=== PATIENT | female | born 1985 | race Caucasian/White ===

== ENCOUNTER 2025-02-16 16:43 | Emergency (ER) | payer MEDICAID ==
[~2025-02-16] VITALS: Ht 165.1 cm; Wt 88.6 kg
[2025-02-16 17:00] VITALS: BP 130/74; PULSE 62; TEMP 98; O2SAT 99
--- NOTE | 2025-02-16 17:09 | ELECTROCARDIOGRAPH REPORT ---
[facility] Test Date: 2025-02-16 Test Time: 17:07:55 Pat Name: ANDRE NAPIER Department: [facility]-ER Patient ID: [id number] Room: Gender: F Roof Tile Layer: : 1985 Requested By: BOBBY TABOR Order Number: [id number] Reading MD: Dr. RAJ Murray Measurements Intervals [place] Rate: 59 P: 51 [place]: 167 QRS: 46 QRSD: 99 T: 21 QT: 395 QTc: 392 Interpretive Statements Sinus bradycardia Probable left atrial enlargement RSR' in V1 or V2, probably normal variant Electronically Signed On 02-18-2025 19:23:[address] RAJ Murray Please click the below link to view image of tracing.
--- NOTE | 2025-02-16 19:27 | RADIOLOGY REPORT ---
CLINICAL HISTORY: CP TECHNIQUE: Single view of the chest was obtained. COMPARISON: None FINDINGS: The heart size and pulmonary vasculature are normal. The lungs are clear. IMPRESSION: NO ACUTE CARDIOPULMONARY PROCESS.
[2025-02-16 19:38] VITALS: RESP 18
--- NOTE | 2025-02-16 19:39 | Physician Documentation ---
History of Present Illness ~ Chief Complaint: Dizziness Stated Complaint: DIZZINESS Time Seen by MD: 19:35 HPI Patient presents to the emergency room with chief complaint of dizziness as if the room is spinning. Dizziness is random that has not seem to be exacerbated with some of the times it does. Denies weakness. States she is able to walk if she keeps her eyes focused on something. History of tinnitus Medication Reconciliation Allergies: Coded Allergies: No Known Allergies (Unverified , 02/16/25) Review of Systems ROS All review of systems negative except as per HPI Physical Exam Vital Signs: Temperature: 98.0, Source: Temporal, Heart Rate: 62, Respiratory Rate: 16, BP: 130/74, Pulse Oximetry: 99, Weight: 88.600 Oxygen Flow Rate: 0 Physical Exam General: Patient is awake, alert, oriented x4 in no acute distress and well appearing.~ Head: Normocephalic and atraumatic. Eyes: Conjunctival normal. EOMI. PERRL. ENT: Mucous membranes moist. Neck: Supple, trachea is midline. Chest: Clear to auscultation bilaterally without rales, rhonchi, or wheezes. There is no accessory muscle use or retractions. Cardiac: RRR without murmurs, gallops, or rubs. Abd: Soft, nondistended, nontender, with normoactive bowel sounds. No guarding, rebound, or rigidity. Extremities: Normal strength. Normal range of motion. No deformities or edema. Neuro: Cranial nerves II-XII grossly intact. No focal neuro deficits. Negative Skinny-Hallpike Progress Results/Orders Results/Orders Orders - ANTONIO TENORIO MD Chest,Single View (02/16/25 19:18) Urinalysis, Cult If Indicated (02/16/25 19:46) Page Hospitalist (02/16/25 21:12) Fill Out Med Reconciliation (02/16/25 21:12) Completed Orders - ANTONIO TENORIO MD Chest,Single View (02/16/25 19:18) Cbc/Diff (02/16/25 19:11) BMP (02/16/25 19:11) PBNP (02/16/25 19:11) Hcg Serum Ql (02/16/25 19:45) Hs Troponin I W Calculations (02/16/25 20:13) Iohexol 350mg/Ml 100ml (Omnipaque 350mg/ (02/16/25 21:31) Vital Signs 02/16/25 02/16/25 17:00 19:38 Temp 98.0 Pulse 62 Resp 16 18 B/P (MAP) 130/74 Pulse Ox 99 O2 Flow Rate 0 Laboratory Tests Test 02/16/25 19:52 White Blood Count 9.7 Red Blood Count 4.67 Hemoglobin 12.7 Hematocrit 38.5 Mean Corpuscular Volume 82.5 Mean Corpuscular Hemoglobin 27.3 Mean Corpuscular Hemoglobin Concent 33.1 Red Cell Distribution Width 13.3 Platelet Count 333 Mean Platelet Volume 7.1 L Neutrophils (%) (Auto) 60.9 Lymphocytes (%) (Auto) 27.7 Monocytes (%) (Auto) 8.7 Eosinophils (%) (Auto) 2.5 Basophils (%) (Auto) 0.2 Neutrophils # (Auto) 5.9 Lymphocytes # (Auto) 2.7 Monocytes # (Auto) 0.8 Eosinophils # (Auto) 0.2 Basophils # (Auto) 0.0 CBC Comment Sodium Level 139 Potassium Level 3.4 L Chloride Level 103 Carbon Dioxide Level 28.4 Anion Gap 8 Blood Urea Nitrogen 14 Creatinine 0.64 Estimated GFR/1.73 m2 > 90 BUN/Creatinine Ratio 21.9 H Glucose Level 91 Calcium Level 8.6 Troponin I High Sensitivity < 4 L Troponin I High Sens Percent Delta Troponin I Hi Sens Absolute Change Pro-B-Type Natriuretic Peptide 46 Albumin 4.0 Human Chorionic Gonadotropin, Qual Negative Chemistry Comments Medical Decision Making Additional information obtaine: N/A Findings Patient presents to the emergency room with symptoms of vertigo. That has not positional. Concern for possible central vertigo therefore neurologist consulted who recommends MRI. Discussed with the patient the possibility of stroke causing her symptoms. Patient acknowledged this but still wants to leave against medical advice. Differential Dx:Considerations: Include: anemia, CVA, dehydration, dysrhythmia, electrolyte imbalance, encephalopathy, Guillain-[place], hypoglycemia, hypotension, hypovolemia, labyrinthitis, Meniere's disease, myasathenia gravis, myocardial infarction, pulmonary embolus, renal failure, respiratory failure, TIA, VBI, vertigo central, vertigo peripheral, vestibular neuronitis, other Departure Disposition: LEFT AGAINST MEDICAL ADVICE Impression: Primary Impression: Vertigo Referrals: NO PRIMARY CARE PROVIDER (PCP) Signature Scribe Signature: No scribe Attestation: The note accurately reflects work and decisions made by me.Antonio Tenorio MD 02/16/25 23:52 ANTONIO TENORIO MD Feb 16, 2025 19:39
[2025-02-16 20:04] LABS: MEAN PLATELET VOLUME 7.1 FL (7.4-10.4); RED CELL DISTRIBUTION WIDTH 13.3 % (11.5-14.5)
[2025-02-16 20:13] LABS: HCG SERUM QL NEGATIVE
[2025-02-16 20:39] LABS: CREATININE 0.64 MG/DL (0.40-0.90); PRO BRAIN NATRIURETIC PEPTIDE 46 PG/ML (0-125); TOTAL CARBON DIOXIDE 28.4 MMOL/L (24-32); eCRCL 106 ML/MIN; eGFR > 90 ML/MIN
--- NOTE | 2025-02-16 21:03 | [facility] CONSULT REPORT ---
[facility] Procedure Note [facility] Procedure Note Consult [facility] Note # Demographics Consult Type: General Neurology Patient Location: Emergency Room First Name: ANDRE Last Name: KARTHIKEYAN Date of : 1985 Age: 39 Gender: Female Facility: [facility] Time of Initial Page (): 02/16/2025 19:47 First Contact with Site (): 02/16/2025 19:47 # HPI History: 39 y/o F presented with vertigo going on for the past 5 days. She denies a headache, blurry vision, loss of vision, focal weakness, numbness, tingling. She says laying down makes it feel a bit better. She says it has been intermittent. She has chronic tinnitus. No recent fevers or flu like symptoms. Associated Symptoms: - nausea # Scores Time of exam and NIHSS (): 02/16/2025 20:51 Level of Consciousness 1a: [0] = Alert; keenly responsive LOC Questions 1b: [0] = Answers both questions correctly LOC Commands 1c: [0] = Performs both tasks correctly Best Gaze 2: [0] = Normal Visual 3: [0] = No visual loss Facial Palsy 4: [0] = Normal symmetrical movements Motor Arm Left 5a: [0] = No drift Motor Arm Right 5b: [0] = No drift Motor Leg Left 6a: [0] = No drift Motor Leg Right 6b: [0] = No drift Limb Ataxia 7: [0] = Absent Sensory 8: [0] = Normal Best Language 9: [0] = No aphasia Dysarthria 10: [0] = Normal Extinction and Inattention 11: [0] = No abnormality NIHSS Total: 0 # Exam SBP: 130 DBP: 74 # PMH-FH-SH Medications: - No antithrombotics or anticoagulants reported MVI, vit B12, Vit D, iron supplement, collagen with biotin # Assessment Impression: - Vertigo etiology likely peripheral vestibulopathy # Plan Labs: - CBC - comprehensive metabolic panel - troponin - TSH - B12 - ua - liver function tests Imaging: (urgency: routine): - MRI Brain without contrast - MR Angiogram Neck with contrast - MR Angiogram Head without contrast Therapy/Evaluation: - PT/OT evaluation Other: - If patient has any neurological deterioration please call me back immediately - would not pursue stroke work-up if MRI is negative - I have discussed my recommendations with the referring provider - telemetry monitoring # Logistics Attestation of consult completion: The patient is located at: [facility]. Facility staff participated in the visit. I performed this telemedicine visit from my offsite office utilizing interactive 2 way audio and visual telecommunication technology at the request of the onsite emergency room provider. Total time spent in telemedicine encounter: I spent 20 minutes reviewing clinical data and/or imaging, obtaining history, examining the patient, communicating with the onsite care team, and in preparation of this report. # Demographics First Name: ANDRE Last Name: KARTHIKEYAN Facility: [facility] Electronically signed at 02/16/2025 21:03 ([place] Time) by Carlos Paul MD Neuro Consult Order placed for: Yes CARLOS PAUL MD Feb 16, 2025 21:03
== END 2025-02-16 22:17 | disposition left against medical advice (07) ==
LOC: ER 16:44
DX: R42 Dizziness and giddiness (principal)
CPT/HCPCS: 36415; 71045; 80048; 83880; 84484; 84703; 85025; 93005; 99285; Q9967; J7030